=== PATIENT | male | born 1935 | race Caucasian/White ===

== ENCOUNTER 2020-09-26 18:51 | Observation (INO) | payer SELFPAY ==
[2020-09-26] MEDS ORDERED: Morphine 2 MG/ML VIAL SLOW IVP SCH (20:45)
[2020-09-26] MEDS ORDERED: Morphine 2 MG/ML VIAL SLOW IVP PRN (20:45)
[2020-09-26] MEDS ORDERED: Melatonin 3 MG TAB PO PRN (21:59)
[2020-09-26] MEDS ORDERED: Acetaminophen 325 MG TAB PO PRN (21:59)
[2020-09-26] MEDS ORDERED: traZODone HCl 50 MG TAB PO SCH (22:00)
[2020-09-26] MEDS ORDERED: risperiDONE 0.5 MG TAB PO SCH (22:00)
[2020-09-26] MEDS: Rosuvastatin 10 MG TAB PO SCH (22:49)
[2020-09-26] MEDS: Vit A,C & E/Lutein/Minerals Tablet PO SCH (22:50)
[2020-09-26] MEDS: Ezetimibe 10 MG TAB PO SCH (22:50)
[2020-09-26] MEDS: levETIRAcetam 250 MG TAB PO SCH (22:50)
[2020-09-26] MEDS: Carvedilol 6.25 MG TAB PO SCH (22:54)
[2020-09-27] MEDS ORDERED: Dextrose 5% in Water 1,000 ML IV PRN (00:15)
[2020-09-27] MEDS ORDERED: Dextrose 50% Abboject 50 ML SYRINGE IVP PRN (00:15)
[2020-09-27] MEDS: Levothyroxine Sodium 88 MCG TAB PO SCH (05:59)
[2020-09-27] MEDS: levETIRAcetam 250 MG TAB PO SCH ×2 (09:00→21:12)
[2020-09-27] MEDS: Carvedilol 6.25 MG TAB PO SCH ×2 (09:01→21:11)
[2020-09-27] MEDS: risperiDONE 0.5 MG TAB PO SCH ×2 (09:02→21:12)
[2020-09-27] MEDS: Cholecalciferol 1,000 UNITS (25 MCG) TAB PO SCH (09:02)
[2020-09-27] MEDS: DULoxetine 30 MG CAP PO SCH (09:02)
[2020-09-27] MEDS: Vit A,C & E/Lutein/Minerals Tablet PO SCH ×2 (09:02→21:11)
[2020-09-27] MEDS: Aspirin 81 mg Enteric Coated Tablet PO SCH (09:02)
[2020-09-27] MEDS: Stress 600 With Zinc 1 TAB PO SCH (09:02)
[2020-09-27] MEDS: Losartan Potassium 50 MG TAB PO SCH (09:03)
[2020-09-27] MEDS: Dexamethasone 4 MG TAB PO SCH ×3 (09:04→17:20)
[2020-09-27] MEDS: Lantus 1000 UNITS/10 ML VIAL SC SCH (09:05)
[2020-09-27] MEDS: HumaLOG 300 UNITS/3 ML VIAL SC PRN ×3 (12:22→21:14)
[2020-09-27] MEDS ORDERED: HYDROcodone/Acetaminophen 5/325 mg Tablet PO PRN (15:10)
[2020-09-27] MEDS: Rosuvastatin 10 MG TAB PO SCH (21:11)
[2020-09-27] MEDS: traZODone HCl 50 MG TAB PO SCH (21:12)
[2020-09-27] MEDS: Ezetimibe 10 MG TAB PO SCH (21:12)
[2020-09-28] MEDS: Levothyroxine Sodium 88 MCG TAB PO SCH (05:13)
[2020-09-28] MEDS: DULoxetine 30 MG CAP PO SCH (07:56)
[2020-09-28] MEDS: Vit A,C & E/Lutein/Minerals Tablet PO SCH ×2 (07:56→20:35)
[2020-09-28] MEDS: Dexamethasone 4 MG TAB PO SCH ×3 (07:56→17:13)
[2020-09-28] MEDS: Carvedilol 6.25 MG TAB PO SCH (07:57)
[2020-09-28] MEDS: risperiDONE 0.5 MG TAB PO SCH ×2 (07:58→20:34)
[2020-09-28] MEDS: Cholecalciferol 1,000 UNITS (25 MCG) TAB PO SCH (07:58)
[2020-09-28] MEDS: levETIRAcetam 250 MG TAB PO SCH ×2 (07:58→20:34)
[2020-09-28] MEDS: Losartan Potassium 50 MG TAB PO SCH (07:59)
[2020-09-28] MEDS: Aspirin 81 mg Enteric Coated Tablet PO SCH (07:59)
[2020-09-28] MEDS: Stress 600 With Zinc 1 TAB PO SCH (07:59)
[2020-09-28] MEDS: Lantus 1000 UNITS/10 ML VIAL SC SCH (08:01)
[2020-09-28] MEDS: HumaLOG 300 UNITS/3 ML VIAL SC PRN ×2 (11:55→17:14)
[2020-09-28] MEDS: Nystatin 500,000 UNITS/5 ML UDCUP SSW SCH ×3 (12:20→20:35)
[2020-09-28] MEDS: Lorazepam 0.5 MG TAB PO PRN (17:20)
[2020-09-28] MEDS: Rosuvastatin 10 MG TAB PO SCH (20:34)
[2020-09-28] MEDS: Carvedilol 3.125 MG TAB PO SCH (20:35)
[2020-09-28] MEDS: Ezetimibe 10 MG TAB PO SCH (20:35)
[2020-09-28] MEDS: traZODone HCl 50 MG TAB PO SCH (20:35)
[2020-09-29] MEDS: Lorazepam 0.5 MG TAB PO PRN (03:39)
[2020-09-29] MEDS: Levothyroxine Sodium 88 MCG TAB PO SCH (05:10)
[2020-09-29 05:49] VITALS: BMI 21.8
[2020-09-29] MEDS: Cholecalciferol 1,000 UNITS (25 MCG) TAB PO SCH (07:39)
[2020-09-29] MEDS: Dexamethasone 4 MG TAB PO SCH ×3 (07:39→17:25)
[2020-09-29] MEDS: Stress 600 With Zinc 1 TAB PO SCH (07:39)
[2020-09-29] MEDS: Losartan Potassium 50 MG TAB PO SCH (07:40)
[2020-09-29] MEDS: Carvedilol 3.125 MG TAB PO SCH ×2 (07:41→20:32)
[2020-09-29] MEDS: Aspirin 81 mg Enteric Coated Tablet PO SCH (07:41)
[2020-09-29] MEDS: risperiDONE 0.5 MG TAB PO SCH ×2 (07:41→20:31)
[2020-09-29] MEDS: levETIRAcetam 250 MG TAB PO SCH ×2 (07:41→20:32)
[2020-09-29] MEDS: Vit A,C & E/Lutein/Minerals Tablet PO SCH ×2 (07:41→20:31)
[2020-09-29] MEDS: DULoxetine 30 MG CAP PO SCH (07:42)
[2020-09-29] MEDS: Nystatin 500,000 UNITS/5 ML UDCUP SSW SCH ×4 (07:44→20:32)
[2020-09-29] MEDS: Lantus 1000 UNITS/10 ML VIAL SC SCH (07:50)
[2020-09-29] MEDS: HumaLOG 300 UNITS/3 ML VIAL SC PRN ×2 (11:55→17:12)
[2020-09-29] MEDS: Rosuvastatin 10 MG TAB PO SCH (20:30)
[2020-09-29] MEDS: Ezetimibe 10 MG TAB PO SCH (20:31)
[2020-09-29] MEDS: Senokot S 8.6-50 MG TAB PO SCH (20:31)
[2020-09-29] MEDS: traZODone HCl 50 MG TAB PO SCH (20:31)
[2020-09-30] MEDS: Levothyroxine Sodium 88 MCG TAB PO SCH (04:55)
[2020-09-30] MEDS: Carvedilol 3.125 MG TAB PO SCH ×2 (08:24→21:01)
[2020-09-30] MEDS: Stress 600 With Zinc 1 TAB PO SCH (08:24)
[2020-09-30] MEDS: levETIRAcetam 250 MG TAB PO SCH ×2 (08:25→21:00)
[2020-09-30] MEDS: Aspirin 81 mg Enteric Coated Tablet PO SCH (08:25)
[2020-09-30] MEDS: Dexamethasone 4 MG TAB PO SCH ×3 (08:25→17:45)
[2020-09-30] MEDS: risperiDONE 0.5 MG TAB PO SCH ×2 (08:25→21:01)
[2020-09-30] MEDS: Losartan Potassium 50 MG TAB PO SCH (08:25)
[2020-09-30] MEDS: Cholecalciferol 1,000 UNITS (25 MCG) TAB PO SCH (08:26)
[2020-09-30] MEDS: Polyethylene Glycol 3350 17 GM Packet PO SCH (08:26)
[2020-09-30] MEDS: Senokot S 8.6-50 MG TAB PO SCH ×2 (08:26→21:01)
[2020-09-30] MEDS: Nystatin 500,000 UNITS/5 ML UDCUP SSW SCH ×4 (08:26→21:01)
[2020-09-30] MEDS: Vit A,C & E/Lutein/Minerals Tablet PO SCH ×2 (08:26→21:00)
[2020-09-30] MEDS: DULoxetine 30 MG CAP PO SCH ×2 (08:26→11:49)
[2020-09-30] MEDS: Lantus 1000 UNITS/10 ML VIAL SC SCH (08:28)
[2020-09-30] MEDS ORDERED: Morphine 2 MG/ML VIAL SLOW IVP PRN (13:15)
[2020-09-30] MEDS ORDERED: HYDROcodone/Acetaminophen 5/325 mg Tablet PO PRN (13:16)
[2020-09-30] MEDS: Ezetimibe 10 MG TAB PO SCH (20:59)
[2020-09-30] MEDS: Rosuvastatin 10 MG TAB PO SCH (21:00)
[2020-09-30] MEDS: traZODone HCl 50 MG TAB PO SCH (21:01)
[2020-10-01] MEDS: Levothyroxine Sodium 88 MCG TAB PO SCH (06:30)
[2020-10-01] MEDS: Nystatin 500,000 UNITS/5 ML UDCUP SSW SCH ×4 (08:41→22:00)
[2020-10-01] MEDS: levETIRAcetam 250 MG TAB PO SCH ×4 (08:42→21:00)
[2020-10-01] MEDS: Vit A,C & E/Lutein/Minerals Tablet PO SCH ×2 (08:42→22:00)
[2020-10-01] MEDS: Stress 600 With Zinc 1 TAB PO SCH (08:42)
[2020-10-01] MEDS: Carvedilol 3.125 MG TAB PO SCH ×2 (08:44→22:00)
[2020-10-01] MEDS: risperiDONE 0.5 MG TAB PO SCH ×2 (08:45→22:10)
[2020-10-01] MEDS: Dexamethasone 4 MG TAB PO SCH ×3 (08:47→17:06)
[2020-10-01] MEDS: DULoxetine 30 MG CAP PO SCH (08:47)
[2020-10-01] MEDS: Cholecalciferol 1,000 UNITS (25 MCG) TAB PO SCH (08:47)
[2020-10-01] MEDS: Aspirin 81 mg Enteric Coated Tablet PO SCH (08:47)
[2020-10-01] MEDS: Losartan Potassium 50 MG TAB PO SCH (08:48)
[2020-10-01] MEDS: Lantus 1000 UNITS/10 ML VIAL SC SCH (08:59)
[2020-10-01] MEDS: Polyethylene Glycol 3350 17 GM Packet PO SCH (12:03)
[2020-10-01] MEDS: Senokot S 8.6-50 MG TAB PO SCH ×2 (12:04→22:00)
[2020-10-01] MEDS: HumaLOG 300 UNITS/3 ML VIAL SC PRN ×2 (12:06→17:06)
[2020-10-01] MEDS: ALPHA LIPOIC ACID 200 MG PO SCH ×3 (14:51→14:53)
[2020-10-01] MEDS: Rosuvastatin 10 MG TAB PO SCH (22:00)
[2020-10-01] MEDS: Ezetimibe 10 MG TAB PO SCH (22:00)
[2020-10-01] MEDS: traZODone HCl 50 MG TAB PO SCH (22:00)
[2020-10-02] MEDS: Levothyroxine Sodium 88 MCG TAB PO SCH (07:07)
[2020-10-02] MEDS: Nystatin 500,000 UNITS/5 ML UDCUP SSW SCH ×4 (08:00→20:39)
[2020-10-02] MEDS: Stress 600 With Zinc 1 TAB PO SCH (08:01)
[2020-10-02] MEDS: Vit A,C & E/Lutein/Minerals Tablet PO SCH ×2 (08:02→20:40)
[2020-10-02] MEDS: Losartan Potassium 50 MG TAB PO SCH (08:05)
[2020-10-02] MEDS: Cholecalciferol 1,000 UNITS (25 MCG) TAB PO SCH (08:06)
[2020-10-02] MEDS: DULoxetine 30 MG CAP PO SCH (08:06)
[2020-10-02] MEDS: risperiDONE 0.5 MG TAB PO SCH ×2 (08:07→20:40)
[2020-10-02] MEDS: levETIRAcetam 250 MG TAB PO SCH ×2 (08:09→20:40)
[2020-10-02] MEDS: Carvedilol 3.125 MG TAB PO SCH ×2 (08:09→20:40)
[2020-10-02] MEDS: Senokot S 8.6-50 MG TAB PO SCH ×2 (08:10→20:40)
[2020-10-02] MEDS: Dexamethasone 4 MG TAB PO SCH ×3 (08:10→17:43)
[2020-10-02] MEDS: Aspirin 81 mg Enteric Coated Tablet PO SCH (08:10)
[2020-10-02] MEDS: Lantus 1000 UNITS/10 ML VIAL SC SCH (08:13)
[2020-10-02] MEDS: Polyethylene Glycol 3350 17 GM Packet PO SCH (08:16)
[2020-10-02] MEDS: Rosuvastatin 10 MG TAB PO SCH (20:39)
[2020-10-02] MEDS: traZODone HCl 50 MG TAB PO SCH (20:40)
[2020-10-02] MEDS: Ezetimibe 10 MG TAB PO SCH (20:40)
[2020-10-03] MEDS: Levothyroxine Sodium 88 MCG TAB PO SCH (05:08)
[2020-10-03] MEDS: Aspirin 81 mg Enteric Coated Tablet PO SCH (08:06)
[2020-10-03] MEDS: Polyethylene Glycol 3350 17 GM Packet PO SCH (08:06)
[2020-10-03] MEDS: Vit A,C & E/Lutein/Minerals Tablet PO SCH ×2 (08:06→20:53)
[2020-10-03] MEDS: Lantus 1000 UNITS/10 ML VIAL SC SCH (08:06)
[2020-10-03] MEDS: Nystatin 500,000 UNITS/5 ML UDCUP SSW SCH ×4 (08:06→20:53)
[2020-10-03] MEDS: Dexamethasone 4 MG TAB PO SCH ×3 (08:07→17:12)
[2020-10-03] MEDS: Carvedilol 3.125 MG TAB PO SCH ×2 (08:07→20:52)
[2020-10-03] MEDS: Stress 600 With Zinc 1 TAB PO SCH (08:07)
[2020-10-03] MEDS: DULoxetine 30 MG CAP PO SCH (08:07)
[2020-10-03] MEDS: Losartan Potassium 50 MG TAB PO SCH (08:08)
[2020-10-03] MEDS: levETIRAcetam 250 MG TAB PO SCH ×2 (08:09→20:52)
[2020-10-03] MEDS: Senokot S 8.6-50 MG TAB PO SCH ×2 (08:09→20:53)
[2020-10-03] MEDS: risperiDONE 0.5 MG TAB PO SCH ×2 (08:09→20:51)
[2020-10-03] MEDS: Cholecalciferol 1,000 UNITS (25 MCG) TAB PO SCH (08:09)
[2020-10-03] MEDS: HumaLOG 300 UNITS/3 ML VIAL SC PRN ×3 (12:04→21:08)
[2020-10-03] MEDS: Ezetimibe 10 MG TAB PO SCH (20:51)
[2020-10-03] MEDS: Rosuvastatin 10 MG TAB PO SCH (20:53)
[2020-10-03] MEDS: traZODone HCl 50 MG TAB PO SCH (20:53)
[2020-10-04] MEDS: Levothyroxine Sodium 88 MCG TAB PO SCH (05:52)
[2020-10-04 06:10] VITALS: BP 107/66; TEMP 98.1
[2020-10-04] MEDS: Aspirin 81 mg Enteric Coated Tablet PO SCH (08:23)
[2020-10-04] MEDS: Cholecalciferol 1,000 UNITS (25 MCG) TAB PO SCH (08:23)
[2020-10-04] MEDS: Nystatin 500,000 UNITS/5 ML UDCUP SSW SCH (08:23)
[2020-10-04] MEDS: Vit A,C & E/Lutein/Minerals Tablet PO SCH (08:23)
[2020-10-04] MEDS: Stress 600 With Zinc 1 TAB PO SCH (08:23)
[2020-10-04] MEDS: Polyethylene Glycol 3350 17 GM Packet PO SCH (08:23)
[2020-10-04] MEDS: levETIRAcetam 250 MG TAB PO SCH (08:23)
[2020-10-04] MEDS: Dexamethasone 4 MG TAB PO SCH (08:24)
[2020-10-04] MEDS: Senokot S 8.6-50 MG TAB PO SCH (08:24)
[2020-10-04] MEDS: Losartan Potassium 50 MG TAB PO SCH (08:24)
[2020-10-04] MEDS: DULoxetine 30 MG CAP PO SCH (08:25)
[2020-10-04] MEDS: risperiDONE 0.5 MG TAB PO SCH (08:25)
[2020-10-04] MEDS: Carvedilol 3.125 MG TAB PO SCH (08:25)
[2020-10-04] MEDS: Lantus 1000 UNITS/10 ML VIAL SC SCH (08:34)
== END 2020-10-04 09:25 ==
LOC: INTOOBSV 19:55 → BURMED 19:55
PROVIDERS: ADMIT Family Medicine; ATTEND Family Medicine
DX: C71.9 Malignant neoplasm of brain, unspecified (principal); I10 Essential (primary) hypertension; E11.9 Type 2 diabetes mellitus without complications; E78.5 Hyperlipidemia, unspecified; Z75.5 Holiday relief care; Z85.46 Personal history of malignant neoplasm of prostate; Z66 Do not resuscitate; Z79.4 Long term (current) use of insulin; Z79.82 Long term (current) use of aspirin; Z79.899 Other long term (current) drug therapy; Z88.8 Allergy status to other drugs, medicaments and biological substances; Z95.0 Presence of cardiac pacemaker; Z95.5 Presence of coronary angioplasty implant and graft
CPT/HCPCS: 36416; G0378; J1815; J8540